=== PATIENT | female | born 2000 | race Caucasian/White ===

== ENCOUNTER 2022-09-04 10:27 | Emergency (ER) | payer OTHER, MEDICAID, SELFPAY ==
[2022-09-04 10:28] VITALS: BP 167/101; PULSE 121; RESP 14; TEMP 36.6; O2SAT 95; BMI 38.5
--- NOTE | 2022-09-04 10:38 | EDS_ITS ---
HPI History of Present Illness HPI Narrative: 22-year-old female right foot pain after kicking a picnic table on Saturday. No other injuries. Chief Complaint: Lower Extremity Injury Informant: patient Occured/Mechanism Mechanism/Context: Yes injury and Yes blunt trauma Onset/Context/Timing Onset: Days Context: Sudden Onset Timing: Continuous Quality of Pain: Dull and Aching Current Severity: Mild Maximum Severity: Moderate Associated Symptoms Associated Symptoms: Negative for Parasthesia, Weakness or Loss of Funtion Narrative Narrative: 22-year-old female no seen past medical or surgical history. He had no picnic table at their house they were taking apart going to burn. She was kicking some boards off and injured the top of her right foot when she kicked the board did not come off. Denies any other injuries. She is never had a broken right foot or surgery to her right foot. Prior similar symptoms: No Recent Illness/Hospitalization: No PFSH PFSH Medical History no medical history no medical history Allergy/AdvReac Type Severity Reaction Status Date / Time No Known Allergies Allergy Verified 09/04/22 10:30 Surgical History no surgical history no surgical history ROS ROS ED ROS Narrative Denies recent illness. Review of Systems ROS Unobtainable: Denies due to encephalopathy Constitutional Constitutional ED: Denies chills or fever(s) Eyes Eyes: Denies blurry vision ENT ENT ED: Denies ear pain Cardiovascular Cardiovascular: Denies chest pain Respiratory/Chest Respiratory/Chest: Denies cough or dyspnea Gastrointestinal Gastrointestinal: Denies abdominal pain Genitourinary Genitourinary ED: Denies dysuria or hematuria Musculoskeletal Musculoskeletal: Denies arthralgias Integumentary Denies abscess Neurologic Neurologic: Denies headache(s) Psychiatric Psychiatric: Denies anxiety Endocrine Endocrinology: Denies polydipsia Hematologic/Lymphatic Hematologic/Lymphatic: Denies easy bleeding Allergic/Immunologic Allergic/Immunologic ED: Denies mouth swelling or tongue swelling EXAM Physical Exam Narrative Exam Narrative: Well-appearing 22-year-old female. Vital signs stable afebrile. HEENT exam unremarkable. Neck nontender. Lungs clear. Heart regular rhythm no murmur rate about 110. Chest wall nontender. Abdomen soft nontender. Back nontender. Moving all 4 extremities. Neurovascularly intact. Right hip, knee and ankle are nontender. Normal range of motion. No deformity. Normal right DP pulse. Right foot midportion there is tenderness to the mid metatarsal. No gross bony deformity. Able to wiggle her toes. Normal touch sensation. Skin intact. Normal cap refill. Normal dorsi and plantarflexion. Otherwise exam unremarkable. Const Vital Signs: 09/04/22 10:28 Temperature 97.8 F Temperature Source Temporal Pulse Rate 121 H Respiratory Rate 14 Blood Pressure 167/101 H Blood Pressure Mean 123 Pulse Ox 95 Oxygen Delivery Method Room Air Positive well nourished and well developed; Negative for cachectic, contractures or unkempt General Appearance ED: well developed and NAD; Negative for unkempt, cachectic or contractures Nutritional Appearance: Negative for cachectic HEENT Reports moist mucous membranes normocephalic and atraumatic; Negative for trauma or tenderness Eyes PERRL General Eye ED: Negative for other Neck full ROM and supple Thyroid: Negative for tender Lymph Lymphatic: Negative for other Chest Wall inspection of chest normal and palpation of chest normal Chest: Negative for other Resp normal respiratory effort, no retractions and clear to auscultation bilaterally Effort and Inspection: Negative for pain with movement Auscultation: Negative for rales, rhonchi or wheezes Cardio regular rate, regular rhythm, S1 normal heart sound, S2 normal heart sound and no murmurs Rate: Negative for bradycardia or tachycardic Rhythm: Negative for abnormal rhythm Bruits: Negative for other GI non-tender, non-distended and no masses Inspection: Negative for abdominal distention Auscultation: normoactive bowel sounds Palpation: soft; Negative for tender or guarding Back/Spine no CVA tenderness General Back: Negative for CVA tenderness Cervical Spine: Negative for cervical spine tenderness Thoracic Spine / Upper Back: Negative for thoracic spinal tenderness Lumbar Spine / Lower Back: Negative for lumbar spinal tenderness Extremity full ROM; Negative for normal to inspection Extremity Narrative: Tenderness anterior right midfoot. No deformity. Mildly swollen. Neurovascular intact. Normal range of motion to the ankle. Able to wiggle her toes. Normal touch sensation. Normal cap refill. Normal DP pulse. Skin intact. General Extremety ED: Yes weight-bearing difficulty General Extremity: weight-bearing difficulty Neuro oriented x3, CN's II-XII intact bilaterally and moves all extremities Sensorium / Orientation: alert, oriented to person, oriented to place and oriented to time; Negative for orientation impaired, confused, lethargic or stuporous Motor Exam: strength 5/5 throughout Psych mental status grossly normal Appearance: Negative for unkempt Speech: No other Mood & Affect: Negative for anxious Skin no wounds Lesions: no lesions Rashes: no rashes Trauma: Negative for abrasion, laceration or puncture MDM MDM MDM Narrative Medical decision making narrative: 22-year-old female with direct trauma to her right foot. Tylenol for pain. X- ray of her right foot to rule out fracture or dislocation. Radiography Diagnostic Testing: Right foot x-ray, 3 views, interpreted by myself shows no acute abnormality. No fracture or dislocation. Discharge Plan Triage Chief Complaint: Lower Extremity Injury ED Provider: Frankie Mcclelland Dx/Rx/DC Orders Clinical Impression: Contusion of foot, right Instructions: ED Foot Contusion Activity Restrictions/Additional Instructions: Ice and elevate your foot to decrease pain and swelling. Motrin for pain and swelling and Tylenol for pain. This should progressively improve. This set of x-rays did not show anything broken or dislocated. If is not improving will need to be reevaluated sometimes a small nondisplaced fracture will not show up on the first set of x-rays. If it continues to be very painful not improving it may need sally-rayed. Disposition Disposition: Home, Self Care
--- NOTE | 2022-09-04 10:38 | EX.ED.DYSGE1 ---
HPI History of Present Illness Chief Complaint: Lower Extremity Injury PFSH PFSH Medical History no medical history Allergy/AdvReac Type Severity Reaction Status Date / Time No Known Allergies Allergy Verified 09/04/22 10:30 Surgical History no surgical history Social History Smoking Status: Never smoker EXAM Physical Exam Const Vital Signs: 09/04/22 10:28 Temperature 97.8 F Temperature Source Temporal Pulse Rate 121 H Respiratory Rate 14 Blood Pressure 167/101 H Blood Pressure Mean 123 Pulse Ox 95 Oxygen Delivery Method Room Air MDM MDM Radiography Diagnostic Testing: Clinical Impression(s) from Imaging Studies Foot X-Ray 09/04/22 10:40 IMPRESSION: Soft tissue swelling. No fracture is seen. Electronically Signed: Virgil Qiu MD at 11:07 EDT , Discharge Plan Triage Chief Complaint: Lower Extremity Injury ED Provider: Frankie Mcclelland Dx/Rx/DC Orders Clinical Impression: Contusion of foot, right Instructions: ED Foot Contusion Primary Care Provider: Nereyda Mojica NP Activity Restrictions/Additional Instructions: Ice and elevate your foot to decrease pain and swelling. Motrin for pain and swelling and Tylenol for pain. This should progressively improve. This set of x-rays did not show anything broken or dislocated. If is not improving will need to be reevaluated sometimes a small nondisplaced fracture will not show up on the first set of x-rays. If it continues to be very painful not improving it may need sally-rayed. Disposition Disposition: Home, Self Care Discharge Date/Time: 09/04/22 11:52
--- NOTE | 2022-09-04 10:40 | RAD_ITS ---
STUDY: X-RAY - RIGHT FOOT CLINICAL: Female, 22 years old. Pain following injury. TECHNIQUE: 3 view(s) of the foot. COMPARISON: None. FINDINGS: Normal talus, calcaneus, and tarsal bones. Normal visualized subtalar, talonavicular, calcaneocuboid, tarsal and tarsometatarsal articulations. Normal metatarsi. Normal metatarsophalangeal joint of the great toe. There is a bipartite tibial sesamoid. Normal interphalangeal joint of the great toe. Normal phalanges of the great toe. Normal second through fifth metatarsophalangeal joints. Normal interphalangeal joints and phalanges of the lesser toes. Soft tissue swelling. RAD/Foot min 3 Views IMPRESSION: Soft tissue swelling. No fracture is seen. Electronically Signed: Virgil Qiu MD at 11:07 EDT ,
[2022-09-04] MEDS: Acetaminophen 500 MG Tablet 1000 MG PO (10:44)
== END 2022-09-04 11:52 | disposition home or self-care (01) ==
LOC: ED 11:05
PROVIDERS: Emergency Provider Emergency Medicine; PCP Nurse Practitioner Family; Visit Provider Emergency Medicine
DX: S90.31XA Contusion of right foot, initial encounter (principal); W22.09XA Striking against other stationary object, initial encounter; Y93.89 Activity, other specified; Y92.009 Unspecified place in unspecified non-institutional (private) residence as the place of occurrence of the external cause
CPT/HCPCS: 73630; 99283